=== PATIENT | female | born 1945 | race African-American/Black ===

== ENCOUNTER 2017-11-19 17:13 | Emergency (ER) | payer OTHER ==
[~2017-11-19] VITALS: Ht 165.1 cm; Wt 100.4 kg
[2017-11-19 17:18] VITALS: TEMP 37; Ht 165.1 cm; Wt 100.4 kg
[2017-11-19] MEDS ORDERED: SODIUM CHLORIDE 0.9% 1000ML 1,000 ML IV STA (17:45)
[2017-11-19] MEDS ORDERED: KETOROLAC TROMETHAMINE 30 MG/ML VIAL IV STA (17:45)
[2017-11-19] MEDS ORDERED: ONDANSETRON INJ 2 MG/ML 2 ML VIAL IV STA (17:45)
[2017-11-19] MEDS ORDERED: OPTIRAY 320 IV PRN (18:00)
[2017-11-19 18:24] LABS: BASO % 0.3 %; BASO ABS # 0.02 K/uL (0-0.2); EOS ABS # 0.63 K/uL (0-0.5); HEMATOCRIT 36.2 % (37-47); HEMOGLOBIN 11.6 g/dL (12.0-16.0); IG# 0.02 K/uL (0.00-0.02); LYMPH % 49.6 %; LYMPH ABS # 3.13 K/uL (1.2-3.4); MEAN CORPUSCULAR HEMOGLOBIN 25.3 pg (25-34); MEAN PLATELET VOLUME 10.1 fL (7.4-10.4); MONO % 5.1 %; MONO ABS # 0.32 K/uL (0.11-0.59); NEUT % 34.7 %; NEUT ABS # 2.19 K/uL (1.4-6.5); PLATELET COUNT 234 K/uL (130-400); RED CELL DISTRIBUTION WIDTH CV 14.7 % (11.5-14.5); RED CELL DISTRIBUTION WIDTH SD 41.8 fL (36.4-46.3); WHITE BLOOD COUNT 6.31 K/uL (4.8-10.8)
--- NOTE | 2017-11-19 18:53 | DIAGNOSTIC IMAGING REPORT ---
ULTRASOUND L VENOUS DOPP LOWER EXT UNILAT CLINICAL HISTORY: Left lower extremity pain COMPARISON STUDY: No previous studies for comparison. FINDINGS: Real-time and color flow Doppler imaging were performed. Flow was seen within the femoral, popliteal and calf veins with no intraluminal thrombus demonstrated. The saphenous vein is patent. IMPRESSION: No evidence of left lower extremity DVT. Electronically signed by: Chet Mancini M.D. 11/19/2017 6:52 PM Dictated Date/Time: 11/19/2017 6:51 PM
[2017-11-19 19:15] LABS: ALBUMIN 3.8 gm/dl (3.4-5.0); CALCIUM 9.2 mg/dl (8.5-10.1); CREATININE 0.96 mg/dl (0.60-1.20)
[2017-11-19 20:21] LABS: AST/SGOT 14 U/L (15-37); POTASSIUM 3.6 mmol/L (3.5-5.1)
--- NOTE | 2017-11-19 20:26 | DIAGNOSTIC IMAGING REPORT ---
CT ABD/PELVIS IV CONTRAST ONLY CLINICAL HISTORY: Left-sided abdominal pain. History of prior surgery. COMPARISON STUDY: None. TECHNIQUE: Following the IV administration of 117 mL of Optiray-320, CT scan of the abdomen and pelvis was performed from the lung bases to the proximal femurs. Images are reviewed in the axial, sagittal, and coronal planes. IV contrast was administered without complication. A dose lowering technique was utilized adhering to the principles of ALARA. CT DOSE: 1132.43 mGy.cm FINDINGS: Lower chest: There are minor basilar atelectatic changes. Liver: The contrast-enhanced liver is normal in size, contour, and attenuation. There is no intrahepatic biliary ductal dilatation. The hepatic veins and portal veins are patent. Gallbladder: Surgically absent Spleen: Normal in size and attenuation. Pancreas: Unremarkable. Adrenal glands: Unremarkable. Kidneys: There is symmetric renal cortical enhancement. The kidneys are normal in size without hydronephrosis. Bowel: There are no transition zones indicate bowel obstruction. The appendix appears normal. There is no acute diverticulitis. Peritoneum: There is no intraperitoneal free air or abdominal ascites. There is a small defect within the anterior abdominal wall superior to the umbilicus. There is infiltration of the subcutaneous fat and anterior peritoneal fat. This may represent fat necrosis secondary to recent surgery. Correlation with recent surgical history is recommended. Clinical and/or imaging follow-up will be necessary. Vasculature: The abdominal aorta is normal in course and caliber. Adenopathy: None. Pelvic viscera: There is a 23 mm fat-containing uterine mass likely representing a lipoleiomyoma Skeletal structures: There is L5 compression deformity which appears old. There are also mild T10-T11 and T12 compression deformities. The bones are osteopenic. IMPRESSION: 1. No evidence of bowel obstruction. No evidence of free air 2. Normal appendix. 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 Subtle anterior peritoneal defect superior to the umbilicus with infiltration the subcutaneous fat and anterior peritoneal fat. This likely represents fat ecchymosis, or an inflammatory process. Correlation with any prior surgical procedure in this area is recommended. Electronically signed by: Chet Mancini M.D. 11/19/2017 8:25 PM Dictated Date/Time: 11/19/2017 8:18 PM
[2017-11-19 20:59] VITALS: BP 140/87; PULSE 78; O2SAT 96
[2017-11-19] MEDS ORDERED: PREG75CA PO (21:12)
[2017-11-19] MEDS ORDERED: RANI300T2 PO (21:12)
[2017-11-19] MEDS ORDERED: AMLO10TA3 PO (21:12)
[2017-11-19] MEDS ORDERED: CYCL10TA6 PO (21:12)
[2017-11-19] MEDS ORDERED: LISI-725 PO (21:12)
--- NOTE | 2017-11-20 00:41 | EMERGENCY ROOM VISIT NOTE ---
History Report prepared by Danita: Damien Hernandez Under the Supervision of: Dr. Nguyễn Fontana D.O. First contact with patient: 17:35 Chief Complaint: LEG PAIN,LEG INJURY Stated Complaint: PAIN IN BOTH LEGS;POST OP SURG History of Present Illness The patient is a 72 year old female who presents to the Emergency Room with complaints of left leg pain and left sided abdominal pain that started on Thursday, 2 days ago. She describes the pain in her leg as sharp and the pain in her abdomen as numb. She reports that Aleve makes the pain better but it does end up coming back. The patient also complains of feeling nauseous and that her last bowel movement was today. The patient is visiting from [facility], where she had a hernia surgery on November 12 of this year. She also has a history of chronic UTIs causing painful, burning urination. Pt denies headache, change in vision, fevers, chest pain, shortness of breath, vomiting, diarrhea, and melena. Source of History: patient Onset: Two days ago Position: leg (left) Quality: sharp, numbness Modifying Factors (Relieving): other (Aleve ) Associated Symptoms: + nausea, + abdominal pain, + urinary symptoms, No fevers, No chest pain, No SOB, No vomiting, No melena, No diarrhea Review of Systems See HPI for pertinent positives & negatives. A total of 10 systems reviewed and were otherwise negative. Past Medical & Surgical Surgical Problems: (1) History of hernia surgery Family History Patient reports no known family medical history. Social History Smoking Status: Former Smoker Marital Status: Current/Historical Medications Scheduled Amlodipine (Norvasc), 20 MG PO DAILY Cyclobenzaprine Hcl (Flexeril), 10 MG PO DAILY Lisinopril (Zestril), 20 MG PO DAILY Pregabalin (Lyrica), 75 MG PO DAILY Ranitidine Hcl (Zantac), 300 MG PO HS Allergies Coded Allergies: Penicillins (Unverified Allergy, Unknown, HIVES, 11/19/17) Tramadol (Unverified Allergy, Unknown, HIVES, 11/19/17) Physical Exam Vital Signs Date Time Temp Pulse Resp B/P (MAP) Pulse Ox O2 Delivery O2 Flow Rate FiO2 11/19/17 20:59 78 18 140/87 96 11/19/17 19:28 67 14 142/73 100 Room Air 8/23/18 17:18 37.0 81 18 199/100 99 Room Air Physical Exam GENERAL: Sitting up in bed, alert, well appearing, well nourished, no distress, non-toxic EYE EXAM: normal conjunctiva. OROPHARYNX: no exudate, no erythema, lips, buccal mucosa, and tongue normal and mucous membranes are moist NECK: supple, no nuchal rigidity, no adenopathy, non-tender LUNGS: Clear to auscultation. Normal chest wall mechanics HEART: no murmurs, S1 normal and S2 normal ABDOMEN: abdomen soft, midline infraumbilical incision clean, dry, and intact. Minimal pain to middle left quadrant. , normo-active bowel sounds, no masses, no rebound or guarding. BACK: Back is symmetrical on inspection and there is no deformity, no midline tenderness, no CVA tenderness. SKIN: no rashes and no bruising UPPER EXTREMITIES: upper extremities are grossly normal. LOWER EXTREMITIES: Flexion and extension of the hips, knees, ankles, and EHL 5/ 5 bilaterally. Gross sensation is intact. DPs are 2/4 bilateral. Pain with palpation to left lateral calf tracking up to IT band. NEURO EXAM: Normal sensorium, cranial nerves II-XII intact, normal speech, no weakness of arms, no weakness of legs. Medical Decision & Procedures ER Provider Diagnostic Interpretation: Radiology results as stated below per my review and the radiologist's interpretation: ULTRASOUND L VENOUS DOPP LOWER EXT UNILAT CLINICAL HISTORY: Left lower extremity pain COMPARISON STUDY: No previous studies for comparison. FINDINGS: Real-time and color flow Doppler imaging were performed. Flow was seen within the femoral, popliteal and calf veins with no intraluminal thrombus demonstrated. The saphenous vein is patent. IMPRESSION: No evidence of left lower extremity DVT. Electronically signed by: Chet Mancini M.D. 11/19/2017 6:52 PM Dictated Date/Time: 11/19/2017 6:[address] ABD/PELVIS IV CONTRAST ONLY CLINICAL HISTORY: Left-sided abdominal pain. History of prior surgery. COMPARISON STUDY: None. TECHNIQUE: Following the IV administration of 117 mL of Optiray-320, CT scan of the abdomen and pelvis was performed from the lung bases to the proximal femurs. Images are reviewed in the axial, sagittal, and coronal planes. IV contrast was administered without complication. A dose lowering technique was utilized adhering to the principles of ALARA. CT DOSE: 1132.43 mGy.cm FINDINGS: Lower chest: There are minor basilar atelectatic changes. Liver: The contrast-enhanced liver is normal in size, contour, and attenuation. There is no intrahepatic biliary ductal dilatation. The hepatic veins and portal veins are patent. Gallbladder: Surgically absent Spleen: Normal in size and attenuation. Pancreas: Unremarkable. Adrenal glands: Unremarkable. Kidneys: There is symmetric renal cortical enhancement. The kidneys are normal in size without hydronephrosis. Bowel: There are no transition zones indicate bowel obstruction. The appendix appears normal. There is no acute diverticulitis. Peritoneum: There is no intraperitoneal free air or abdominal ascites. There is a small defect within the anterior abdominal wall superior to the umbilicus. There is infiltration of the subcutaneous fat and anterior peritoneal fat. This may represent fat necrosis secondary to recent surgery. Correlation with recent surgical history is recommended. Clinical and/or imaging follow-up will be necessary. Vasculature: The abdominal aorta is normal in course and caliber. Adenopathy: None. Pelvic viscera: There is a 23 mm fat-containing uterine mass likely representing a lipoleiomyoma Skeletal structures: There is L5 compression deformity which appears old. There are also mild T10-T11 and T12 compression deformities. The bones are osteopenic. IMPRESSION: 1. No evidence of bowel obstruction. No evidence of free air 2. Normal appendix. 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 Subtle anterior peritoneal defect superior to the umbilicus with infiltration the subcutaneous fat and anterior peritoneal fat. This likely represents fat ecchymosis, or an inflammatory process. Correlation with any prior surgical procedure in this area is recommended. Electronically signed by: Chet Mancini M.D. 11/19/2017 8:25 PM Dictated Date/Time: 11/19/2017 8:18 PM Laboratory Results 11/19/17 18:05 Red Blood Count 4.58, Mean Corpuscular Volume 79.0, Mean Corpuscular Hemoglobin 25.3, Mean Corpuscular Hemoglobin Concent 32.0, Mean Platelet Volume 10.1, Neutrophils (%) (Auto) 34.7, Lymphocytes (%) (Auto) 49.6, Monocytes (%) (Auto) 5.1, Eosinophils (%) (Auto) 10.0, Basophils (%) (Auto) 0.3, Neutrophils # (Auto ) 2.19, Lymphocytes # (Auto) 3.13, Monocytes # (Auto) 0.32, Eosinophils # (Auto ) 0.63, Basophils # (Auto) 0.02 11/19/17 18:05 11/19/17 19:40 Test 11/19/17 18:05 11/19/17 18:20 11/19/17 19:40 White Blood Count 6.31 K/uL (4.8-10.8) Red Blood Count 4.58 M/uL (4.2-5.4) Hemoglobin 11.6 g/dL (12.0-16.0) Hematocrit 36.2 % (37-47) Mean Corpuscular Volume 79.0 fL (80-100) Mean Corpuscular Hemoglobin 25.3 pg (25-34) Mean Corpuscular Hemoglobin Concent 32.0 g/dl (32-36) Platelet Count 234 K/uL (130-400) Mean Platelet Volume 10.1 fL (7.4-10.4) Neutrophils (%) (Auto) 34.7 % Lymphocytes (%) (Auto) 49.6 % Monocytes (%) (Auto) 5.1 % Eosinophils (%) (Auto) 10.0 % Basophils (%) (Auto) 0.3 % Neutrophils # (Auto) 2.19 K/uL (1.4-6.5) Lymphocytes # (Auto) 3.13 K/uL (1.2-3.4) Monocytes # (Auto) 0.32 K/uL (0.11-0.59) Eosinophils # (Auto) 0.63 K/uL (0-0.5) Basophils # (Auto) 0.02 K/uL (0-0.2) RDW Standard Deviation 41.8 fL (36.4-46.3) RDW Coefficient of Variation 14.7 % (11.5-14.5) Immature Granulocyte % (Auto) 0.3 % Immature Granulocyte # (Auto) 0.02 K/uL (0.00-0.02) Anion Gap 5.0 mmol/L (3-11) Est Creatinine Clear Calc Drug Dose 63.1 ml/min Estimated GFR () 69.0 Estimated GFR (Non- 59.5 BUN/Creatinine Ratio 7.9 (10-20) Calcium Level 9.2 mg/dl (8.5-10.1) Total Bilirubin 0.3 mg/dl (0.2-1) Alanine Aminotransferase (ALT/SGPT) 16 U/L (12-78) Alkaline Phosphatase 73 U/L (45-117) Total Protein 8.0 gm/dl (6.4-8.2) Albumin 3.8 gm/dl (3.4-5.0) Lipase 186 U/L (73-393) Urine Color YELLOW Urine Appearance CLEAR (CLEAR) Urine pH 7.5 (4.5-7.5) Urine Specific [place] 1.004 (1.000-1.030) Urine Protein NEG (NEG) Urine Glucose (UA) NEG (NEG) Urine Ketones NEG (NEG) Urine Occult Blood TRACE (NEG) Urine Nitrite NEG (NEG) Urine Bilirubin NEG (NEG) Urine Urobilinogen NEG (NEG) Urine Leukocyte Esterase NEG (NEG) Urine WBC (Auto) 0 /hpf (0-5) Urine RBC (Auto) 0-4 /hpf (0-4) Urine Hyaline Casts (Auto) 0 /lpf (0-5) Urine Epithelial Cells (Auto) 5-10 /lpf (0-5) Urine Bacteria (Auto) NEG (NEG) Direct Bilirubin < 0.1 mg/dl (0-0.2) Aspartate Amino Transf (AST/SGOT) 14 U/L (15-37) Laboratory results per my review. Medications Administered Medications (Trade) Dose Ordered Sig/Marge Route Start Time Stop Time Status Last Admin Dose Admin Sodium Chloride 1,000 ml @ 999 mls/hr Q1H1M STAT IV 11/19/17 17:45 11/19/17 18:45 DC 11/19/17 18:19 999 MLS/HR Ondansetron HCl (Zofran Inj) 4 mg NOW STAT IV 11/19/17 17:45 11/19/17 17:47 DC 11/19/17 18:19 4 MG Ketorolac Tromethamine (Toradol Inj) 15 mg NOW STAT IV 11/19/17 17:45 11/19/17 17:47 DC 11/19/17 18:19 15 MG ED Course ED COURSE: Vital signs were reviewed and showed Hypertension The patients medical record was reviewed The above diagnostic studies were performed and reviewed. ED treatments and interventions as stated above. 1737: The patient was evaluated in room C10. A complete history and physical examination was performed. 1745: Toradol 15mg IV, Zofran 4mg IV, Sodium Chloride 1000 ml @ 999 mls/hr IV 2100: Upon reevaluation, the patient is resting in bed. I discussed my findings with the patient and she understands and agrees with the treatment plan. Based on the patients age, coexisting illnesses, exam and lab findings the decision to treat as an outpatient was made. The patient remained stable while under my care. The patient appeared well at the time of discharge. Medical Decision Differential diagnoses includes but is not limited to gastritis, peptic ulcer disease, GERD, gallbladder disease, pancreatitis, small bowel obstruction, acute coronary syndrome, pericarditis, ischemic bowel, irritable bowel disease, irritable bowel syndrome, appendicitis, diverticulitis, malignancy, hernia, urinary tract infection, torsion, [/ectopic (if female)], perforation, trauma, infectious. Patient is a 72-year-old female who presents the ER for 2 separate complaints. She has abdominal pain which is been present since this past Thursday associated with nausea. Last bowel movement was today. Pain is located on the left side. She had previous abdominal surgery on the of this month for hernia repair. She also has pain in the left leg on the lateral aspect of the left calf. Reproducible and tracks up to the left IT band. Also complains of pain with urination. CBC along with BMP, LFTs, bilirubin lipase is unremarkable. UA was unremarkable. CT abdomen pelvis shows some possible inflammatory changes around the anterior aspect of the stomach which is likely consistent with the surgery. No fevers or leukocytosis to suggest an infectious process. Duplex of the left lower extremity was negative. Pain resolved with Toradol. Updated bedside discharge follow-up PCP as an outpatient. Discussed with Pt concerning signs and symptoms to watch out for. Pt was instructed to follow up with their PCP and discussed with the patient their option to return to the ED at anytime for persistent or worsening symptoms. The appropriate anticipatory guidance and out-patient management, including indications for return to the emergency department, were explained at length to the patient and understood. Medication Reconcilliation Current Medication List: was personally reviewed by me Blood Pressure Screening Patient's blood pressure: Elevated blood pressure Blood pressure disposition: Elevated BP felt to be situational Impression Primary Impression: Leg pain, left Scribe Attestation The scribe's documentation has been prepared under my direction and personally reviewed by me in its entirety. I confirm that the note above accurately reflects all work, treatment, procedures, and medical decision making performed by me. Departure Information Dispostion Home / Self-Care Referrals No Doctor, Assigned (PCP) Forms HOME CARE DOCUMENTATION FORM, IMPORTANT VISIT INFORMATION Patient Instructions [facility] Additional Instructions Please follow up with your primary care doctor with in the next 24 hours. Any worsening of your symptoms, please return to the ED immediately. This includes any fevers greater than 100.4, worsening pain, chest pain, shortness breath, persistent nausea, vomiting, unable to eat or drink, or any other concerning signs or symptoms from your standpoint. Please take Tylenol or Motrin as needed for pain.
== END 2017-11-19 21:01 | disposition home or self-care (01) ==
LOC: C.EDB 17:16 → C.EDC 21:01
DX: M79.605 Pain in left leg (principal); Z87.891 Personal history of nicotine dependence